=== PATIENT | male | born 1940 | race Asian ===

== ENCOUNTER 2024-07-16 06:32 | Day surgery (SDC) | payer MEDICARE, MEDICAID, SELFPAY ==
[2024-07-13 09:49] VITALS: BMI 27.8
[2024-07-13 15:41] LABS: Basophils # (Auto) 0.1 Thou/mm3 (0.0-0.2); Basophils % (Auto) 1 % (0-2.5); Eosinophils # (Auto) 0.7 Thou/mm3 (0.0-0.5); Eosinophils % (Auto) 9 % (0-10); Hemoglobin 11.4 g/dL (13.5-16.0); Immature Granulocytes % (Auto) 0 % (0-0); Immature Granulocytes Auto 0.02 Thou/mm3 (0.00-0.00); Lymphocytes # (Auto) 2.6 Thou/mm3 (1.0-4.8); Lymphocytes % (Auto) 34 % (10-50); Mean Corpuscular HGB Conc 31.7 g/dl (31.0-37.0); Mean Corpuscular Hemoglobin 24.1 pg (25.0-35.0); Mean Corpuscular Volume 76 fL (80-100); Monocytes # (Auto) 0.7 Thou/mm3 (0.0-0.8); Monocytes % (Auto) 9 % (0-12); Neutrophils # (Auto) 3.7 Thou/mm3 (1.8-7.7); Neutrophils % (Auto) 47 % (37-80); Nucleated Red Blood Cell % 0 /100 WBC (0); Platelet Count 193 Thou/mm3 (140-440); RDW Standard Deviation 44.3 fL (35.1-43.9); Red Blood Count 4.74 Miln/mm3 (4.50-5.90); White Blood Count 7.9 Thou/mm3 (3.8-10.6)
[2024-07-13 15:49] LABS: Anion Gap 7 (7-16); BUN/Creatinine Ratio 16 Ratio (12-20); Blood Urea Nitrogen 18 mg/dL (9-23); Calcium 9.6 mg/dL (8.3-10.6); Carbon Dioxide 27.3 mMol/L (20.0-31.0); Chloride 104 mMol/L (98-107); Creatinine (Component) 1.1 mg/dL (0.6-1.3); Estimated Creatinine Clearance 55.8 mL/min (>60); Glucose 108 mg/dL (74-106); Osmolality,Calculated 278 (275-295); Potassium 4.2 mMol/L (3.4-5.1); Prothrombin Time 11.2 Seconds (9.0-12.2); Sodium 138 mMol/L (136-145); eGFR > 60 See Note
[2024-07-16] VITALS (8 sets, daily range): BP systolic 134–174; BP diastolic 79–98; PULSE 60–71; RESP 12–17; TEMP 36.1–36.4; O2SAT 98–100; BMI 27.3
[2024-07-16] MEDS: Lisinopril 20 MG TABLET 40 MG PO (09:02)
--- NOTE | 2024-07-16 09:08 | ESOP_ITS ---
RE: KEO ROJAS : 1940 DATE OF OPERATION: 07/16/2024 PROCEDURE PERFORMED: Dual chamber permanent pacemaker generator change out. INDICATIONS FOR PROCEDURE: The patient with history of previous permanent pacemaker implantation. During the routine check, it was noted to have end-of-life parameters of the pacemaker. DETAILS OF THE PROCEDURE: After explaining the procedure in detail to the patient and after obtaining appropriate consent, the patient was given 1 mg of intravenous Versed and 50 mcg of intravenous fentanyl as premedication. The left subclavian area was prepped with Ancef solution. Local anesthetic 2% lidocaine was used and an oblique incision 5 cm in length was made in the left subclavian area and subcutaneous tissue was dissected. The pacemaker pocket was opened. The generator was taken out of the pocket. The leads were unscrewed and were tested and as the leads were functioning satisfactorily, a new pacemaker generator was attached to the leads and the leads were screwed in. Pacemaker generator was put back in the pocket. The pocket was irrigated with IV Ancef solution. Subcutaneous tissue was closed with 2-0 chromic catgut continuous sutures. Skin was closed with caterina. The patient tolerated the procedure very well without any complication. The pacemaker data obtained is as follows. The atrial lead threshold potential obtained is 2.25 volts with a current at that threshold of 5.1 milliamps, lead resistance of 437 and P wave amplitude of 3.0 millivolts. Ventricular lead threshold potential obtained is 0.5 volts with current at that threshold of 1.1 milliamps, lead resistance of 456 ohms and R wave amplitude could not be obtained as the patient is totally pacemaker dependent. The pacemaker used is [employer] pacemaker, model number Susie XT DR CHEVY Medrano [id number], serial number [id number]. The pacemaker mode is set in DDDR mode with a low rate at 60 per minute and upper activity rate at 130 per minute. DT: 08:34:38 TT: 09:07:00 Ref: [id number] - TID: [id number]
== END 2024-07-16 10:32 | disposition home or self-care (01) ==
PROVIDERS: PCP Internal Medicine Cardiovascular Disease; Referring Provider Internal Medicine Cardiovascular Disease; Visit Provider Internal Medicine Cardiovascular Disease
PROC: (CPT 33228; principal; 2024-07-16 07:30)
DX: Z45.010 Encounter for checking and testing of cardiac pacemaker pulse generator [battery] (principal); I10 Essential (primary) hypertension
CPT/HCPCS: 33228; 36415; 80048; 85025; 85610; 85730; 99152; 99153; A4649; C1785; J0171; J0461; J0690; J2250; J2310; J2371; J3010; J3490; A9270

== ENCOUNTER → 2024-10-05 | Outpatient (CLI) | payer MEDICARE, MEDICAID, SELFPAY ==
--- NOTE | 2024-10-05 12:30 | XR_ITS ---
Examination: Abdomen sonogram, complete Date and time of exam: October 05, 2024 1209 hours INDICATIONS: Left upper abdominal pain and swelling beginning several months ago Technique: Multiple real-time grayscale transabdominal sonographic images of the abdomen have been obtained. Findings: Normal gallbladder Normal common bile duct 0.3 cm Pancreatic head 1.7 cm Aorta not enlarged Liver 13.3 cm lobular contour no focal liver lesions Normal hepatopedal portal venous flow Patent IVC Right kidney 11.2 cm renal cortex 1.9 cm 21 mm upper pole cyst Left kidney 11.0 cm renal cortex 1.6 cm Mild bilateral renal parenchymal scar formation Spleen 7.2 cm Infrarenal abdominal aortic aneurysm transverse dimensions 4.2 cm, 3.9 cm IMPRESSION: Recommend CTA abdomen pelvis post intravenous contrast follow-up to best assess infrarenal abdominal aortic aneurysm
== END | disposition home or self-care (01) ==
PROVIDERS: PCP Family Medicine; Referring Provider Student in an Organized Health Care Education/Training Program; Visit Provider Student in an Organized Health Care Education/Training Program
DX: I71.43 Infrarenal abdominal aortic aneurysm, without rupture (principal)
CPT/HCPCS: 76700

== ENCOUNTER → 2024-11-05 | Outpatient (CLI) | payer MEDICARE, MEDICAID, SELFPAY ==
--- NOTE | 2024-11-05 15:30 | XR_ITS ---
Examination: CTA abdomen, with intravenous contrast. CTA pelvis, with intravenous contrast. 2-D sagittal and coronal reconstructions. 3-D reconstructions. Date and time of exam: November 05, 2024 1544 hours INDICATIONS: Abdomen sonogram October 05, 2024 infrarenal abdominal aortic aneurysm 4.2 x 3.9 cm CTDI vol (mgy) 25.7 DLP (MGycm) 551 Technique: Multiple CTA images, 2.0 mm slice thickness, obtained abdomen, pelvis, with the high-resolution 64 slice scanner. 100 cc Isovue-370 is administered intravenously. Sagittal and coronal 2-D reconstructions are obtained. 3-D reconstructions, angiographic images are obtained. 3-D postprocessing, including vascular maximum intensity projections. Low dose protocols were performed. One or more of the following dose reduction techniques were used; automated exposure control, adjustment of the mA and/or KV according to patient size, use of iterative reconstruction technique. Findings: No focal liver or splenic lesions No gallstones No pancreatic or adrenal mass No renal or ureteral calculi, no hydronephrosis No bowel obstruction Infrarenal abdominal aortic aneurysm AP dimension 3.3 cm mediolateral dimension 3.6 cm, AP dimension right iliac artery 28 mm mm left iliac artery 24 mm mm Left internal iliac artery aneurysmal dilatation transverse dimension 27 mm Urinary bladder wall thickening up to 6 mm Advanced degenerative disc disease L2-L3, L4-L5 IMPRESSION: Infrarenal abdominal aortic aneurysm extending into the common iliac arteries as above
== END | disposition home or self-care (01) ==
PROVIDERS: Referring Provider Student in an Organized Health Care Education/Training Program; Visit Provider Student in an Organized Health Care Education/Training Program
DX: I71.43 Infrarenal abdominal aortic aneurysm, without rupture (principal)
CPT/HCPCS: 74174; A4649; Q9967

== ENCOUNTER → 2024-11-23 | Outpatient (CLI) | payer MEDICARE, MEDICAID, SELFPAY ==
--- NOTE | 2024-11-23 12:36 | XR_ITS ---
Examination: Lumbar spine, 5 views Technique: Lumbar spine AP, lateral, coned lateral lower lumbar spine, bilateral obliques 5 views Exam date and time: November 23, 2024 1250 hours INDICATIONS: Low back pain beginning 3 months ago. FINDINGS: Lumbar levoscoliosis 15 degrees Moderate osteopenia Diffuse advanced facet arthropathy No acute lumbar fracture Advanced disc narrowing upper 4 lumbar levels with prominent lumbar spondylosis IMPRESSION: Advanced degenerative disc disease upper 4 lumbar levels with significant spinal stenosis
== END | disposition home or self-care (01) ==
LOC: CDIM 12:27
PROVIDERS: PCP Student in an Organized Health Care Education/Training Program; Referring Provider Student in an Organized Health Care Education/Training Program; Visit Provider Student in an Organized Health Care Education/Training Program
DX: M51.360 Other intervertebral disc degeneration, lumbar region with discogenic back pain only (principal); M48.061 Spinal stenosis, lumbar region without neurogenic claudication
CPT/HCPCS: 72110